=== PATIENT | female | born 1955 | race Caucasian/White ===

== ENCOUNTER 2018-03-28 13:11 | Outpatient (RCR) | payer OTHER, SELFPAY ==
--- NOTE | 2018-03-28 09:22 | PTTR_ITS ---
DATE: 03/28/18 SUBJECTIVE: Damion states that she is feeling much better than she had been previously. She continues to have pain when sitting, although otherwise feels as though her symptoms are well managed. OBJECTIVE: Manual therapy: ([id number]).Pt has slightly increased leg length on the L in supine position. Her L ASIS is elevated as compared to the R, although this is minimal compared to her previous visit. She received mobilization with movement in L side lying position with R hamstring activation and manual overpressure at the pelvis with good tolerance. Post-mobilization, she does have improved symmetry with bony landmarks at the pelvis. Therapeutic procedures ([id number]).We reviewed pts HEP. With transverse abdominal activation, she is getting a great deal of hip flexor firing. She was instructed in appropriate palpation for landmarks and with significant cuing and tactile feedback she was able to demonstrate improved transverse abdominal activation with diminished hip flexor recruitment. I also progressed her bridges to include bridge with october and she was provided with a blue theraband for progression of her hook lying ER. Direct treatment time: 30 min Total treatment time: 30 min SS/imani
== END 2018-04-04 23:59 | disposition home or self-care (01) ==
LOC: PT 13:11
PROVIDERS: Referring Provider Orthopaedic Surgery; Visit Provider Orthopaedic Surgery
DX: S72.012D Unspecified intracapsular fracture of left femur, subsequent encounter for closed fracture with routine healing (principal)
CPT/HCPCS: 97110; 97140

== ENCOUNTER 2021-07-25 11:23 | Outpatient (CLI) | payer OTHER, SELFPAY ==
--- NOTE | 2021-07-25 11:15 | RT.EKG_ITS ---
APPROVED REPORT Exam: Resting ECG Reason for Exam: cad Patient Location: O HR:76 bpm ECG Measurements Heart Rate [address] 133 P 51 QRSd 83 QRS 17 QT 382 T 7 QTc 430 Conclusion Sinus rhythm...normal P axis, V-rate 50- 99 Baseline wander in lead(s) V3 Normal Electrocardiogram
== END 2021-07-25 11:24 | disposition home or self-care (01) ==
LOC: DI.CARD 11:24
PROVIDERS: PCP Family Medicine; Visit Provider Internal Medicine Cardiovascular Disease
DX: I25.10 Atherosclerotic heart disease of native coronary artery without angina pectoris (principal)
CPT/HCPCS: 93010

== ENCOUNTER 2022-05-01 03:02 | Outpatient (CLI) | payer OTHER, SELFPAY ==
[2022-05-01 12:57] LABS: ALT 32 U/L (14-59); AST 30 U/L (15-37); Albumin 3.8 g/dL (3.4-5.0); Alkaline Phosphatase 64 U/L (46-116); BUN 18 mg/dL (7-18); Bilirubin, Total 0.8 mg/dL (0.2-1.0); CREATININE 0.8 mg/dL (0.55-1.02); Calcium 9.1 mg/dL (8.5-10.1); Calculated LDL 93 mg/dL (<100); Chloride 104 mmol/L (98-107); Cholesterol 190 mg/dL (<200); Estimated GFR 81.72 (mL/min/1.73m2); Glucose 87 mg/dL (74-106); HDL Cholesterol 88 mg/dL (40-60); Potassium 4.1 mmol/L (3.5-5.1); Sodium 140 mmol/L (136-145); Total Protein 7.1 g/dL (6.4-8.2); Triglyceride 45 mg/dL (<150)
== END 2022-05-01 03:03 | disposition home or self-care (01) ==
LOC: LOS 03:02
PROVIDERS: PCP Family Medicine; Visit Provider Family Medicine
DX: I10 Essential (primary) hypertension (principal); E03.9 Hypothyroidism, unspecified; I25.10 Atherosclerotic heart disease of native coronary artery without angina pectoris
CPT/HCPCS: 36415; 80053; 80061; 84443

== ENCOUNTER 2022-05-17 14:59 | Outpatient (REF) | payer OTHER, SELFPAY ==
--- NOTE | 2022-05-17 13:30 | PAPFT_PTH ---
PATIENT: Damion Grant LOC: [facility] U#:[id number] AGE/SX: 66/F ROOM: RE05/17/[address]: Leticia Hatch MD, DC : 1955 BED: DIS: 05/17/2022 SPEC #: [id number] RECD: 05/18/22 12:43 STATUS: JAEL REQ #: [id number] SARAH: 05/17/22 13:[address]: Leticia Hatch DEPT: [facility] Cytology RECD BY: Vanna Mccracken Tissues: 1 - CX/ENDOCX FOR PAP SMEARS Procedures: PAP THIN PREP/UVM Screening HPV DNA PROBE Comments: [id number]
== END 2022-05-17 15:00 | disposition home or self-care (01) ==
LOC: LBN 14:59
PROVIDERS: PCP Family Medicine; Visit Provider Family Medicine
DX: Z12.4 Encounter for screening for malignant neoplasm of cervix (principal); Z11.51 Encounter for screening for human papillomavirus (HPV)
CPT/HCPCS: 88142; 87624

== ENCOUNTER 2022-08-27 14:46 | Outpatient (REF) | payer OTHER, SELFPAY ==
[2022-08-27 15:00] LABS: Abs Immature Grans 0.01 10^3/uL (0.0-0.06); Absolute Basophil Count 0.03 10^3/uL (0.0-0.2); Absolute Eosinophil Count 0.04 10^3/uL (0.0-0.7); Absolute Lymphocyte Count 1.12 10^3/uL (1.2-3.4); Absolute Monocyte Count 0.52 10^3/uL (0.1-0.8); Absolute Neutrophil Count 4.22 10^3/uL (1.2-6.7); Basophils % 0.5; Eosinophils % 0.7; HCT 44.3 % (36.0-46.0); HGB 14.9 g/dL (11.2-15.7); Immature Grans % 0.2; Lymphocytes % 18.9; MCH 29.5 pg (27.0-33.0); MCHC 33.6 % (32.0-36.0); MCV 88 fL (80-95); MPV 9.4 fL (8.0-11.0); Monocytes % 8.8; Neutrophils % 70.9; Platelet Count 303 10^3/uL (130-400); RBC 5.05 10^6/uL (3.93-5.22); RDW 12.7 % (11.7-14.6); RDW-SD 40.8 fL; WBC 5.94 10^3/uL (4.4-10.8)
[2022-08-27 15:46] LABS: Ferritin 111 ng/mL (8-252); Folate 19.8 ng/mL (8.6-20.0)
[2022-08-27 15:50] LABS: Vitamin B12 > 2000 pg/mL (193-986)
== END 2022-08-27 14:47 | disposition home or self-care (01) ==
LOC: LBN 14:46
PROVIDERS: PCP Family Medicine; Visit Provider Surgery
DX: E03.9 Hypothyroidism, unspecified (principal); E53.8 Deficiency of other specified B group vitamins; E78.5 Hyperlipidemia, unspecified; I10 Essential (primary) hypertension; I25.10 Atherosclerotic heart disease of native coronary artery without angina pectoris; I73.00 Raynaud's syndrome without gangrene; K58.9 Irritable bowel syndrome, unspecified; K62.5 Hemorrhage of anus and rectum; R53.83 Other fatigue; R73.09 Other abnormal glucose; S72.002A Fracture of unspecified part of neck of left femur, initial encounter for closed fracture; Z12.11 Encounter for screening for malignant neoplasm of colon; Z86.2 Personal history of diseases of the blood and blood-forming organs and certain disorders involving the immune mechanism
CPT/HCPCS: 82607; 82728; 82746; 85025

== ENCOUNTER 2022-11-30 12:04 | Day surgery (SDC) | payer OTHER, SELFPAY ==
--- NOTE | 2022-11-29 22:06 | PDOC.DSDIS_ITS ---
Date of service: 11/30/22 Time of Service: 13:40 Discharge Plan Disposition Patient Disposition: Home Condition: Good Discharge Details Reason For Visit: colon scope and hemorrhoid banding Attending Provider: Yasmeen Roy Primary Care Provider: Leticia Hatch Home Meds and New Rx's Prescriptions: Continued atorvastatin 10 mg tablet 10 mg PO DAILY Qty: 90 4RF estradiol 0.5 mg tablet 0.5 mg PO .Q48 H Qty: 45 4RF levothyroxine 25 mcg tablet 25 mcg PO DAILY Qty: 114 5RF Rx Instructions: 1 tablet by mouth Saturday through Saturday, then 2 tablets on Saturday & Saturday medroxyprogesterone 2.5 mg tablet 2.5 mg PO DAILY Qty: 90 4RF cholecalciferol (vitamin D3) 25 mcg (1,000 unit) capsule 25 mcg PO DAILY vitamin B complex [B Complex-Vitamin B12] Tablet 1 tab PO DAILY ascorbate calcium (vitamin C) 500 mg tablet 500 mg PO .every other day biotin 5 mg capsule 5 mg PO .every other day prochlorperazine maleate [Compazine] 5 mg tablet 5 mg PO QID PRN (Reason: nausea and vomiting) Qty: 7 0RF Held aspirin 81 mg tablet,delayed release (DR/EC) 81 mg PO DAILY Qty: 90 4RF Hold Instructions: Resume on 12/12/22. Discontinued polyethylene glycol 3350 17 gram/dose powder 238 g PO ONCE Qty: 238 0RF Rx Instructions: take per colonoscopy instructions bisacodyl [Dulcolax (bisacodyl)] 5 mg tablet,delayed release (DR/EC) 5 mg PO ONCE Qty: 4 0RF Rx Instructions: take per colonoscopy instructions Discharge Instructions Additional Instructions: [facility] Colonoscopy Post- Op Instructions Instructions for Everyone who is given Anesthesia: For your safety, please do the following for the next twenty-four (24) hours: *Do Not operate a motor vehicle (car, truck, motorcycle, etc.) *Do Not drink alcoholic beverages or use any recreational drugs for the first 24 hours or while taking pain medications. The medications in your body may have a reaction that can be dangerous. *Do Not make any important decisions or sign any important papers. Findings: Normal colon small hemorrhoid that we banded Follow up: 2 wks 12/10 11:30am w/ Dr. [facility] 1. No lifting over 20 pounds or strenuous activity for the first 24 hours after your procedure. After 24 hours there are no restrictions on your activity but you may feel fatigued for a few days. 2. After you arrive home you may have a light meal and return to your normal diet as you can tolerate it without feeling sick to your stomach. 3. You may have a bloated, gaseous feeling in your belly (abdomen) after a colonoscopy. Passing gas and belching will help. Walking or lying down on your left side with your knees flexed may relieve the discomfort. Call the office at [phone] (Office) or [phone] (Hospital) right away if you notice any of the following: a.Vomiting of blood or ?coffee ground stools?. b.Rectal bleeding 1Tbsp, blood clots or continuous bleeding. c.Severe belly (abdominal) pain. d.A hard distended belly (abdomen) and an inability to pass gas. 4. Please don?t expect to have a normal BM (bowel movement) for 2-3 days after your procedure. 5. If there are questions regarding the findings of your procedure, please contact your doctor 6. If you are unable to contact your doctor with a problem, contact the hospital at [phone]. 7. Continue all your regular medications unless directed otherwise. Rubber Band Ligation for Hemorrhoids: What to Expect at Home Your Recovery In this procedure, a hemorrhoid was tied off at its base with rubber bands. You may feel pain and have a feeling of fullness in your lower belly. Or you may feel as if you need to have a bowel movement. This usually goes away within several days after the surgery. You may need pain medicine during this time. You may have a small amount of bleeding from your anus about 7 to 10 days after surgery, when your hemorrhoid falls off. This is normal. Some people are able to return to regular activities in 24 hours. Others may need 2 to 3 days of rest. You will need to avoid heavy lifting and straining with bowel movements for the next 5-7 days. This care sheet gives you a general idea about how long it will take for you to recover. But each person recovers at a different pace. Follow the steps below to get better as quickly as possible. How can you care for yourself at home? Activity ? Rest when you feel tired. Getting enough sleep will help you recover. ? Try to walk each day. Start by walking a little more than you did the day before. Bit by bit, increase the amount you walk. Walking boosts blood flow and helps prevent pneumonia and constipation. ? Avoid strenuous activities, such as bicycle riding, jogging, weight lifting, or aerobic exercise, until your doctor says it is okay. ? For 2 to 3 weeks, avoid lifting anything that would make you strain. This may include heavy grocery bags and milk containers, a heavy briefcase or backpack, cat litter or dog food bags, a vacuum upholstery cleaner, or a child. ? You may take showers and baths as usual. Pat your anal area dry when you are done. ? Ask your doctor when you can drive again. ? You may need to take a few days to a few weeks off work. It depends on the procedure you had, the type of work you do, and how you feel. Diet ? You can eat your normal diet. If your stomach is upset, try eating bland, low-fat foods like plain rice, broiled chicken, toast, and yogurt. ? Drink plenty of fluids (unless your doctor has told you not to). ? It is important to eat high-fibre foods after your procedure. This will make it easier to have bowel movements and keep your hemorrhoids from coming back. ? You may notice that your bowel movements are not regular right after your procedure. This is common. Try to avoid constipation and straining with bowel movements. You may want to take a fibre supplement every day. If you have not had a bowel movement after a couple of days, ask your doctor about taking a mild laxative. Pain Control ? Your doctor will tell you if and when you can restart your medicines. He or she will also give you instructions about taking any new medicines. ? If you take aspirin or some other blood thinner, ask your doctor if and when to start taking it again. ? Take pain medicines ?as directed: Take tylenol 500 mg by mouth with food every 4 hours as needed for pain. Or ibuprofen 600 mg by mouth with food every 6 hours as needed for pain.? Do not take tylenol if you have a history of heavy drinking, hepatits C or liver problems.? Do not take ibuprofen if you have a history of stomach ulcers /problems, bleeding problem or kidney issues. If you think your pain medicine is making you sick to your stomach: o?? Take your medicine after meals (unless your doctor has told you not to). ? Sit in 5 to 10 inches palin of warm water (sitz bath) for 15 to 20 minutes 3 times a day and after bowel movements. Then pat the area dry. Do this as long as you have pain in your anal area. ? Put ice or a cold pack on the area for 10 to 20 minutes at a time. Try to do this every 1 to 2 hours for the next 3 days (when you are awake). Put a thin cloth between the ice and your skin. ? Support your feet with a small step stool when you sit on the toilet. This helps flex your hips and places your pelvis in a squatting position. This can make bowel movements easier after your procedure. I understand the above instructions and have no questions. Signature of Patient or Adult Escort Name of Responsible Adult Escort Signature of Nurse Date/Time Activity:: see above Diet:: see above Discharge Orders Discharge Orders: Discharge Order (Routine); Ordered 11/30/22 Ordered By: Yasmeen Roy DS: Diagnosis Discharge Diagnosis (1) IBS (irritable bowel syndrome): Status: Chronic (2) Internal hemorrhoid, bleeding: Status: Acute Asessment and Plan: Post [place] Note/Eval The patient is seen and examined after their colonoscopy.? The patient has been able to pass gas.? They are not having abdominal pain.? They have been able to tolerate liquids and a snack.? They do not have any nausea or vomiting.? They are not having any chest pain or shortness of breath.??? They are not having any rectal bleeding..? Their vital signs have been stable-see nursing notes. We discussed findings during their colonoscopy, and any biopsies that were done/polyps that were removed. The patient will be sent a letter with any biopsy results, and when to repeat the colonoscopy.-see discharge instructions. Patient was given explicit instructions to follow-up regarding colonoscopy-refer to discharge instructions.? We reviewed resumption of medications. Patient verbalized understanding and discharged in stable and satisfactory condition- See nursing notes.
[2022-11-30 12:17] VITALS: BP 155/95; PULSE 68; RESP 16; TEMP 36.6; O2SAT 100
[2022-11-30] MEDS: Lactated Ringers 1,000 ML 80 ML IV (12:43)
--- NOTE | 2022-11-30 12:47 | W.PM.HP.N ---
Date of service: 11/30/22 Time of Service: 12:51 Assessment and Plan Assessment and plan (1) Rectal hemorrhage: Status: Acute Assessment and plan: Colonoscopy and hemorrhoid banding. I reviewed with the patient what she could expect during the procedure, recovery time, Colace care, and risks Informed consent is obtained for the procedural (explained in simple layman's terms that the pt. and/or family could understand) explaining risks vs benefits and alternatives to the procedure and consequences if we do not do the procedure and need/rational for the procedure. Risks include but are not limited to: bleeding, infection, perforation of esophagus, stomach, colon, small intestines, bronchus or trachea, or PTX. This would necessitate emergency surgery to repair the damage w/ possible ostomy; and other associated complications w/ the required surgery. Also complications of anesthesia including aspiration, AZ/CVA/. Risks hemorrhoid banding include but not limited to: Bleeding, infections, recurrence, anesthesia, and pain (2) Former smoker: Status: Acute (3) Atherosclerosis of aorta: Status: Acute (4) Encounter for screening colonoscopy: Status: Acute (5) Hypertension: Status: Chronic (6) Hyperlipidemia: Status: Acute (7) CAD (coronary artery disease): Status: Chronic (8) S/P arterial stent: Status: Acute (9) Hypothyroid: Status: Chronic (10) Raynaud disease: Status: Acute History of Present Illness Narrative: 11/30/22 Patient is here today for colonoscopy for rectal bleeding.??? They completed a bowel prep with just a clear yellow residual effluent.? They not having any chest pain or shortness of breath, currently.? They are not experiencing any fever or chills.? They deny any productive cough or upper respiratory tract infection signs or symptoms.? They are not having abdominal pain, or nausea and vomiting.? They have not had any changes in medications, past medical history or past surgical history since previously being seen in the office. They have not had any accidents or have been in the ER since the clinic pre-operative evaluation. ??I reviewed the procedure with the patient today, including risks and benefits of the procedure, and what they could expect at home for recovery.? All questions are answered to the patient?s satisfaction today, and they are stable to proceed with the proposed procedure. we also discussed the possibility of having internal hemorrhoids.? We discussed what hemorrhoids are and how they form.? We discussed doing hemorrhoid banding.? We we discussed what that would entail surgically, risks involved, and what they could expect afterwards and as far as healing and care.? Risks include but not limited to: Bleeding, infection, pain, recurrence. Patient should hold her aspirin prior to the procedure.? 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 I encouraged her to do so.? At this point she is 1 year out from stent placement.? Her chance of occlusion being off the aspirin for 10 days time in total is minimal, but there is a slight risk of thrombosis.? And I encouraged her to discuss this with Dr. Prakash. Informed consent is obtained for the procedural (explained in simple layman's terms that?the pt and/or family could understand) explaining risks vs benefits and alternatives to the procedure and consequences if we do not do the procedure and need/rational for the procedure. Risks include but are not limited to: bleeding, infection, perforation of colon.? This would necessitate emergency surgery to repair the damage w/ possible ostomy; and other associated complications w/ the required surgery. ? Also complications of anesthesia including aspiration, AZ/CVA/. We will also plan on doing a hemorrhoid banding. She may have some mild discomfort for 24 to 48 hours after the procedure. Risks include bleeding, infections, abscesses or fistulas, and recurrence of the hemorrhoids. I discussed with the?patient would they could expect during the procedure, post procedure and recovery time and risks.? The patient understands that they need to have a ride home after the procedure.? The patient was given all this information in writing and expressed understanding. If there are any questions or concerns please feel free to contact our office.? Generally Colonoscopy does not require antibiotics prophylaxis (2) Encounter for screening colonoscopy: (3) Hypertension: (4) Hyperlipidemia: (5) IBS (irritable bowel syndrome): (6) CAD (coronary artery disease): (7) Hypothyroid: (8) Raynaud disease: (9) Vitamin B12 deficiency: (10) Fatigue: (11) Atherosclerosis of aorta: (12) Former smoker: ?Orders Blood Draw (Office) 08/27/22 K62.5 - Hemorrhage of anus and rectum, R53.83 - Other fatigue ? Ferritin 08/27/22 E03.9 - Hypothyroidism, unspecified, E53.8 - Deficiency of other specified B group vitamins, E78.5 - Hyperlipidemia, unspecified, I10 - Essential (primary) hypertension, I25.10 - Atherosclerotic heart disease of [place] coronary artery without angina pectoris, I73.00 - Raynaud's syndrome without gangrene, K58.9 - Irritable bowel syndrome without diarrhea, K62.5 - Hemorrhage of anus and rectum, R53.83 - Other fatigue, R73.09 - Other abnormal glucose, S72.002A - Fracture of unspecified part of neck of left femur, initial encounter for closed fracture, Z12.11 - Encounter for screening for malignant neoplasm of colon, Z86.2 - Personal history of diseases of the blood and blood-forming organs and certain disorders involving the immune mechanism ? Complete Blood Count w/Diff 08/27/22 E03.9 - Hypothyroidism, unspecified, E53.8 - Deficiency of other specified B group vitamins, E78.5 - Hyperlipidemia, unspecified, I10 - Essential (primary) hypertension, I25.10 - Atherosclerotic heart disease of [place] coronary artery without angina pectoris, I73.00 - Raynaud's syndrome without gangrene, K58.9 - Irritable bowel syndrome without diarrhea, K62.5 - Hemorrhage of anus and rectum, R53.83 - Other fatigue, R73.09 - Other abnormal glucose, S72.002A - Fracture of unspecified part of neck of left femur, initial encounter for closed fracture, Z12.11 - Encounter for screening for malignant neoplasm of colon, Z86.2 - Personal history of diseases of the blood and blood-forming organs and certain disorders involving the immune mechanism ? Vitamin B12 08/27/22 E03.9 - Hypothyroidism, unspecified, E53.8 - Deficiency of other specified B group vitamins, E78.5 - Hyperlipidemia, unspecified, I10 - Essential (primary) hypertension, I25.10 - Atherosclerotic heart disease of [place] coronary artery without angina pectoris, I73.00 - Raynaud's syndrome without gangrene, K58.9 - Irritable bowel syndrome without diarrhea, K62.5 - Hemorrhage of anus and rectum, R53.83 - Other fatigue, R73.09 - Other abnormal glucose, S72.002A - Fracture of unspecified part of neck of left femur, initial encounter for closed fracture, Z12.11 - Encounter for screening for malignant neoplasm of colon, Z86.2 - Personal history of diseases of the blood and blood-forming organs and certain disorders involving the immune mechanism ? Folate 08/27/22 E03.9 - Hypothyroidism, unspecified, E53.8 - Deficiency of other specified B group vitamins, E78.5 - Hyperlipidemia, unspecified, I10 - Essential (primary) hypertension, I25.10 - Atherosclerotic heart disease of [place] coronary artery without angina pectoris, I73.00 - Raynaud's syndrome without gangrene, K58.9 - Irritable bowel syndrome without diarrhea, K62.5 - Hemorrhage of anus and rectum, R53.83 - Other fatigue, R73.09 - Other abnormal glucose, S72.002A - Fracture of unspecified part of neck of left femur, initial encounter for closed fracture, Z12.11 - Encounter for screening for malignant neoplasm of colon, Z86.2 - Personal history of diseases of the blood and blood-forming organs and certain disorders involving the immune mechanism ?New prochlorperazine maleate (Compazine) 5 mg? PO QID PRN 7 tabs 0RF nausea and vomiting ? ? polyethylene glycol 3350 ?? take per colonoscopy instructions 238 grams? PO ONCE 238 grams 0RF colonoscopy prep ? ? bisacodyl (Dulcolax (bisacodyl)) ?? take per colonoscopy instructions 5 mg? PO ONCE 4 tabs 0RF colonscopy bowel prep ? ? RN:?Pt reports she has [facility], on and off, for the last 6 months, not constipated. It feels like something gets scrapped.? Pt reports paternal Uncle had colon cancer.? ?Pt has? had colon cancer screening before.? They denies problems with constipation or diarrhea.? They deny any pain or difficulty with bowel movements.? There is secondary family member that had? colon cancer.? Pt has not had any unexplained weight loss.? Their appetite is good.? ?They deny heart, lung, or kidney problems. They are not having heartburn or indigestion. They have not had any prior colo-rectal surgery.? The patient? has not had a prior ZOILA.? They deny any problems with anesthesia in the past.? She states the bleeding is intermittent.? The bleeding has not changed since she stopped the blood thinners.? No weight loss.? No changes in bowels, other than as mentioned.? She denies having any history of hemorrhoids.? She has never had fissures before.? The bleeding was painless.? It is very random. Patient had a cath and stents placed in June 2021.? She is off of Plavix.? She runs 2 miles a day without chest pain.? See Dr. Prakash's notes.? Last CE was in 2011.? Nl per pt.? Anesthesia: general (without airway) Previous surgical intolerances: No Previous surgical complications: No Pulmonary risk factors: Date of surgery: Planned procedure: Yes Sleep apnea risks: No COPD/Asthma/Smoker:? quit tob 18 yrs ago.? Lung CT scan nl. Can climb one flight of stairs (12-13 steps) in less than 30 seconds without stopping and without symptoms: Yes The surgery proposed for this patient is: low risk Active cardiac conditions: pt had stents.? Did not have an AZ.? See Dr. Prakash's notes in [facility] Active risk factors: none ASA (acetylsalicylic acid): ASA 81mg Beta blockers: not used Kidneys: no concerns DM:no Review of Systems All systems reviewed & are unremarkable except as noted in HPI and below PFSH All Active Problems Former smoker (Acute) Atherosclerosis of aorta (Acute) Fatigue (Acute) Rectal hemorrhage (Acute) Encounter for screening colonoscopy (Acute) Hypertension (Chronic) Hyperlipidemia (Acute) CAD (coronary artery disease) (Chronic) S/P arterial stent (Acute) IBS (irritable bowel syndrome) (Chronic) Hypothyroid (Chronic) [place] Raynaud disease (Acute) Vitamin B12 deficiency (Acute) Medical History Angina of effort Closed left femoral fracture (~2017) Disorder of breast Ductectomy, NOT cancer Elevated random blood glucose level Fracture of left hip History of anemia Hypokalemia Psoriasis Surgical History History of colonoscopy (~10/09/11) Social History (Reviewed 11/30/22 @ 12:54 by BHARATH Leggett Smoking/Tobacco Use Status: Former Tobacco Use tobacco type: cigarettes Quit Date: 08/05/13 Tobacco: How many years used: 28 Smoking risk assessment performed?: Yes Alcohol Intake: current Alcohol Intake frequency: a few times a week Alcohol type: wine Drug use: Never Substance use type: does not use Caregiver/Support person: No Household members: spouse Housing: house Communication Needs: None Do you need help understanding health information?: Never Pets and animals: No Sexually active: Yes Do you think of yourself as: straight/heterosexual Current gender identity: female What is your relationship status?: How often do you talk on the phone with friends or family?: once per week How often do you get together with friends or relatives?: once per week How often do you attend restoration or baptism services?: decline to answer Do you belong to any clubs or organized social groups?: yes Panel score (0-1 are the most socially isolated patients): 2 NHANES result reviewed/action taken: Yes What type of physical activity do you participate in: bicycling, other Details: Skiing and running Duration: 60-90 minutes/day Frequency: 3-4 times per week Janel/Hoahaoism: None Seatbelt use: always Helmet use: Yes Helmet use: always Do you feel safe at home: Yes Do you feel safe in your relationship?: Yes Meds Allergies and Home Medications Allergies Allergy/AdvReac Type Severity Reaction Status Date / Time Iodinated Contrast Media Allergy Severe Verified 11/30/22 12:26 gluten Allergy Verified 11/30/22 12:26 Home Medications Medication Instructions Recorded Confirmed Type aspirin 81 mg tablet,delayed 81 mg PO DAILY #90 tabs 05/17/22 11/27/22 Rx release atorvastatin 10 mg tablet 10 mg PO DAILY #90 tabs 05/17/22 11/30/22 Rx estradiol 0.5 mg tablet 0.5 mg PO .Q48 H #45 tabs 05/17/22 11/30/22 Rx levothyroxine 25 mcg tablet 25 mcg PO DAILY #114 tabs 05/17/22 11/30/22 Rx medroxyprogesterone 2.5 mg tablet 2.5 mg PO DAILY #90 tabs 05/17/22 11/30/22 Rx ascorbate calcium (vitamin C) 500 500 mg PO .every other day 08/27/22 11/27/22 History mg tablet biotin 5 mg capsule 5 mg PO .every other day 08/27/22 11/30/22 History cholecalciferol (vitamin D3) 25 25 mcg PO DAILY 08/27/22 11/30/22 History mcg (1,000 unit) capsule prochlorperazine maleate 5 mg 5 mg PO QID PRN nausea and 08/27/22 11/30/22 Rx tablet (Compazine) vomiting #7 tabs vitamin B complex (B 1 tab PO DAILY 08/27/22 11/30/22 History Complex-Vitamin B12 tablet) Exam Narrative Exam Narrative: PHYSICAL EXAM GENERAL APPEARANCE: Alert, healthy appearance, oriented, x 3,? in no acute distress HEAD, EYES, EARS, NECK, THROAT: Head is normocephalic, pupils equal, round, reactive to light and accommodation, ocular movement intact, sclera clear and no jaundice. ?Dentition intact. LUNGS: normal respiration/normal chest excursion. ?Clear to auscultation bilaterally. ?No wheeze. ?HEART: Regular rate and rhythm. no murmurs EXTREMITY: No edema or cyanosis.? no leg pain, redness, swelling.? ABDOMEN: soft and non-tender to palpation.? Normal bowel sounds.? ? Results Labs Labs: .labs Last Vital Signs Temp 36.6 C 11/30/22 12:17 Pulse 68 11/30/22 12:17 Resp 16 11/30/22 12:17 BP 155/95 H 11/30/22 12:17 Pulse Ox 100 11/30/22 12:17 Time Spent Time spent with Patient: <40 minutes Time was spent: preparing to see the patient(eg.review tests), obtaining and/or reviewing separately otained hiistory, ordering medications,tests, procedures, referring, communicating with other health health care facilities inspector, indepentently interpreting results, counseling the patient and care coordination
--- NOTE | 2022-11-30 12:48 | W.ANESPRE ---
General Info Date of Service Date Performed: 11/30/22 Height: 5 ft 4 in Weight: 62.199 kg Body Mass Index (BMI): 23.5 Surgical Procedure: Operation Date: 11/30/22 12:55 Proposed Procedure Side Surgeon p Colonoscopy Yasmeen Roy DO s Possible Hemorrhoid Banding Yasmeen Roy DO Meds Allergies and Home Medications Allergies Allergy/AdvReac Type Severity Reaction Status Date / Time Iodinated Contrast Media Allergy Severe Anaphylaxis Verified 11/30/22 13:03 gluten AdvReac GI Verified 11/30/22 13:03 intolerance Home Medication Medication Instructions Recorded aspirin 81 mg tablet,delayed 81 mg PO DAILY #90 tabs 05/17/22 release atorvastatin 10 mg tablet 10 mg PO DAILY #90 tabs 05/17/22 estradiol 0.5 mg tablet 0.5 mg PO .Q48 H #45 tabs 05/17/22 levothyroxine 25 mcg tablet 25 mcg PO DAILY #114 tabs 05/17/22 medroxyprogesterone 2.5 mg tablet 2.5 mg PO DAILY #90 tabs 05/17/22 ascorbate calcium (vitamin C) 500 500 mg PO .every other day 08/27/22 mg tablet biotin 5 mg capsule 5 mg PO .every other day 08/27/22 cholecalciferol (vitamin D3) 25 25 mcg PO DAILY 08/27/22 mcg (1,000 unit) capsule prochlorperazine maleate 5 mg 5 mg PO QID PRN nausea and 08/27/22 tablet (Compazine) vomiting #7 tabs vitamin B complex (B 1 tab PO DAILY 08/27/22 Complex-Vitamin B12 tablet) Current Visit Medications: Current Medications Generic Name Dose Route Start Last Admin Trade Name Freq PRN Reason Stop Dose Admin Hyoscyamine Sulfate 0.125 mg 11/30/22 11:52 Hyoscyamine 0.125 Mg Sl/Oral/Chew SL DIRECTED PRN Ringer's Solution 1,000 mls @ 80 mls/hr 11/30/22 06:00 11/30/22 12:43 IV 12/29/22 23:59 80 mls/hr INFUSION JORDAN Administration IV Miscellaneous Supplies 1 each 11/30/22 06:00 Iv Access IV 12/29/22 23:59 DIRECTED JORDAN Ondansetron HCl 4 mg 11/30/22 11:52 Ondansetron 4 Mg/2 Ml Vial IVP Q4H PRN PRN Nausea / Vomiting Sodium Chloride 0 ml 11/30/22 06:00 Normal Saline Flush 10 Ml Syr IV 12/29/22 23:59 PRN PRN Sodium Chloride 0 ml 11/30/22 06:00 Normal Saline 10 Ml Vial IJ 12/29/22 23:59 DIRECTED PRN Sterile Water 0 ml 11/30/22 06:00 Water,Injection,Sterile 10 Ml Vial IJ 12/29/22 23:59 DIRECTED PRN PFSH Active Problems Active Problems: Problem Status Onset Code Former smoker Z87.891 Atherosclerosis of aorta I70.0 Fatigue R53.83 Rectal hemorrhage K62.5 Encounter for screening colonoscopy Z12.11 Hypertension I10 Hyperlipidemia E78.5 CAD (coronary artery disease) I25.10 S/P arterial stent Z95.9 IBS (irritable bowel syndrome) K58.9 Hypothyroid E03.9 Raynaud disease I73.00 Vitamin B12 deficiency E53.8 Medical History Medical History Angina of effort Closed left femoral fracture (~2018) Disorder of breast Ductectomy, NOT cancer Elevated random blood glucose level Fracture of left hip History of anemia Hypokalemia Psoriasis Surgical History Surgical History History of colonoscopy (~10/09/11) Tobacco Smoking/Tobacco Use Status: Former Tobacco Use Passive smoking exposure: No Alcohol Alcohol Intake: current Alcohol intake frequency: a few times a week Alcohol type: wine Substance Use Substance use: Never Substance use type: does not use Vital Signs and Lab Results Vital Signs Most Recent Vital Signs in EMR: Most Recent Vital Signs Temp Pulse Resp BP Pulse Ox 36.6 C 68 16 155/95 H 100 11/30/22 12:17 11/30/22 12:17 11/30/22 12:17 11/30/22 12:17 11/30/22 12:17 Lab Results Blood Type / Crossmatch: No Data to Display Complete Blood Count: No Data to Display Complete Metabolic Panel: No Data to Display Liver Function Panel: No Data to Display Coagulation Panel: No Data to Display Cardiac Panel: No Data to Display Arterial Blood Gas: No Data to Display Venous Blood Gas: No Data to Display Pancreas Panel: No Data to Display Thyroid Panel: No Data to Display Infectious Disease: No Data to Display Blood Cultures: No Data to Display Toxicology Panel: No Data to Display Imaging and Studies Imaging and Studies Study information below may be from another EMR and interpreted by another provider. Please see original notes in EMR for more complete details. EKG Summary: DATE/TIME OF SERVICE: 07/25/21 1130 : 1955PERFORMING LOCATION: .CARD APPROVED REPORT Exam: Resting ECG Reason for Exam: cad Patient Location: O HR:76 bpm ECG Measurements Heart Rate 76 AXIS MA 133 P 51 QRSd 83 QRS 17 QT 382 T7 QTc 430 Conclusion Sinus rhythm...normal P axis, V-rate 50- 99 Baseline wander in lead(s) V3 Normal Electrocardiogram Anesthesia Assessment and Plan Anesthesia History Personal History: No History of Anesthesia Complications Family History: No Family History of Anesthesia Complications Exercise Tolerance Exercise Tolerance: Metabolic Equivalents>4 Pertinent Negatives Pertinent Negatives: No Symptoms of GERD and No Major Pulmonary Symptoms or Complaints Cardiac & Pulmonary Exam Cardiac Exam: Normal S1/S2 Heart Sounds Pulmonary Exam: Clear Bilateral Breath Sounds Implantable Cardiac Device Does patient have a Pacemaker or an ICD?: No Airway Exam Known Difficult Airway: No Mallampati Class: 1 Mouth Opening: Normal (> 3cm) Thyromental Distance: Greater than 3 cm Neck Range of Motion: Full ROM Neck Circumference: Normal Teeth Condition: Normal Dentition ASA Classification ASA Score: ASA 3 Emergency Case?: No NPO Status NPO Status: NPO Clears >2 hours, Solids >8 hours Anesthesia Plan Resuscitation Status: Full Code Anesthesia Technique: General Anesthesia Airway Planned: Natural Airway Monitors Used: Standard Monitors
[2022-11-30 12:50] VITALS: BMI 23.5
--- NOTE | 2022-11-30 13:35 | W.COLOREPORT ---
Date of service: 11/30/22 Time of Service: 13:00 Colonoscopy Report Date of procedure: 11/30/22 Pre-op diagnosis general: rectal bleeding Post-op diagnosis procedure note: other (x1 internal hemorrhoid -left lateral position) Surgeon: Yasmeen Roy Anesthesia Type: General:No Airway Estimated blood loss (mL): 1 Pathology: none sent Complications: None Disposition: same day Prep: Miralax/Dulcolax Retraction Time: 13 Procedure Description: After informed consent was obtained the patient was taken to the procedure room and placed in a left decubitous position. Monitors were applied and a time out was done. The patients name, date of , procedure, allergies to medications and metal in their body was reviewed. The patient was then sedated. Once sedated and comfortable a rectal exam was done. External exam was normal. Internal exam revealed a normal sphincter tone and no palpable masses. The scope was then introduced and retrofelexed. Grade I internal hemorrhoids x1 -in the left lateral position were identified. The scope was then advanced to the cecum w/out difficulty. The TI and appendiceal orifice were identified. The prep was BBPS 3 in all segments for a total of 9. The scope was then slowly retracted over 13 minutes back into the rectum. There are no polyps, AVMs, or diverticular apparent today. The mucosa is pink and healthy with a normal vascular pattern. We did then do a hemorrhoid banding on the left lateral complex. No bleeding is noted. The scope was removed and the patient was woken up and taken back to Same day surgery in stable condition. The patient tolerated the procedure well and there were no immediate complications. Follow up: The patient should follow up in 10 years unless they develop changes in bowel habits or other new gastrointestinal complaints.
[2022-11-30 13:44] VITALS: BP 106/71; PULSE 72; RESP 16; TEMP 36.4; O2SAT 97
[2022-11-30] MEDS: Ketorolac 15 MG/ML VIAL IVP (13:53)
[2022-11-30] MEDS: Acetaminophen 500 MG TAB 1000 MG PO (13:54)
[2022-11-30 14:01] VITALS: BP 168/90; PULSE 60; RESP 16; TEMP 36.6; O2SAT 100
--- NOTE | 2022-11-30 14:05 | W.ANESPOSTOP ---
Postoperative Evaluation Date, Time and Location Date Performed: 11/30/22 Time Performed: 14:05 Patient Location: Day Surgery Unit Vital Signs Most Recent Imported Vital Signs: Most Recent Vital Signs Temp Pulse Resp BP Pulse Ox 36.4 C L 72 16 106/71 97 11/30/22 13:44 11/30/22 13:44 11/30/22 13:44 11/30/22 13:44 11/30/22 13:44 Pain Score Most Recent Pain Score: Most Recent Pain Score Pain Level 2 11/30/22 13:44 Assessment Mental Status: Awake (Alert & Oriented to Patient Baseline) Airway and Respiratory Function: Patent airway with normal (patient baseline) respiratory exam Cardiovascular Function: Hemodynamically Stable Hydration Status: Adequately Hydrated Nausea & Vomiting: No Nausea or Vomiting Pain: Pain is tolerable per patient Peripheral Nerve Block: Patient did not receive a nerve block
== END 2022-11-30 14:38 | disposition home or self-care (01) ==
PROVIDERS: PCP Family Medicine; Visit Provider Surgery
PROC: 0DJD8ZZ Inspection of Lower Intestinal Tract, Via Natural or Artificial Opening Endoscopic (ICD-10-PCS; CPT 45378; principal; 2022-11-30 12:45)
PROC: (CPT 46221; 2022-11-30 12:45)
DX: K62.5 Hemorrhage of anus and rectum (principal); K64.0 First degree hemorrhoids
CPT/HCPCS: 46221; 45378; J1885

== ENCOUNTER 2023-06-13 02:32 | Outpatient (CLI) | payer MEDICARE, SELFPAY ==
[2023-06-13 14:23] LABS: ALT 22 U/L (14-59); AST 18 U/L (15-37); Albumin 3.9 g/dL (3.4-5.0); Alkaline Phosphatase 62 U/L (46-116); Anion Gap 8.1 mmol/L (3-11); BUN 14 mg/dL (7-18); Bilirubin, Total 0.9 mg/dL (0.2-1.0); CO2 27.9 mmol/L (21.0-32.0); CREATININE 0.8 mg/dL (0.55-1.02); Calcium 9.6 mg/dL (8.5-10.1); Calculated LDL 88 mg/dL (<100); Chloride 103 mmol/L (98-107); Cholesterol 190 mg/dL (<200); Estimated GFR 81.21 (mL/min/1.73m2); Glucose 96 mg/dL (74-106); HDL Cholesterol 93 mg/dL (40-60); Sodium 139 mmol/L (136-145); TSH (W/Ref FT4) 2.21 uIU/mL (0.36-3.74); Total Protein 7.2 g/dL (6.4-8.2); Triglyceride 45 mg/dL (<150)
== END 2023-06-13 02:33 | disposition home or self-care (01) ==
LOC: LBO 02:33
PROVIDERS: PCP Family Medicine; Visit Provider Family Medicine
DX: I10 Essential (primary) hypertension (principal); E03.9 Hypothyroidism, unspecified
CPT/HCPCS: 36415; 80053; 80061; 84443

== ENCOUNTER → 2024-02-27 00:48 | Outpatient (CLI) | payer MEDICARE, SELFPAY ==
--- NOTE | 2024-02-27 06:45 | DI.US_ITS ---
Exam(s) US ABDOMEN EXAM: US ABDOMEN CLINICAL HISTORY: epigastric pain,R10.13 TECHNIQUE: Ultrasound abdomen performed using standard protocol. COMPARISON: No exams were available for comparison FINDINGS: ABDOMINAL AORTA AND IVC: Visualized portions normal caliber. PANCREAS: Normal where visualized. LIVER: Normal. Hepatopetal flow in the Portal Vein. The liver measures 12.6 cm long. GALLBLADDER:No evidence of cholelithiasis. No evidence of wall thickening. No pericholecystic fluid i dentified. There is a 0.5 cm nodule along the wall of the gallbladder which may represent a polyp. BILIARY SYSTEM: Common bile duct measures < 7 mm. No intrahepatic biliary ductal dilation. CRAIG'S SIGN: Negative. KIDNEYS: Kidneys are symmetric in size. No evidence of renal calculi. No evidence of hydronephrosis. No renal mass or cyst identified. SPLEEN: Not enlarged. ASCITES: None seen. IMPRESSION: 1. 0.5 cm nodule along the wall of the gallbladder likely reflecting a polyp. 2. Otherwise unremarkable abdominal ultrasound. DATA REPOSITORY:
== END ==
PROVIDERS: PCP Family Medicine; Visit Provider Family Medicine
DX: R10.13 Epigastric pain (principal); R07.9 Chest pain, unspecified; Z95.9 Presence of cardiac and vascular implant and graft, unspecified; I25.10 Atherosclerotic heart disease of native coronary artery without angina pectoris
CPT/HCPCS: 76700

== ENCOUNTER 2024-08-06 02:33 | Outpatient (CLI) | payer MEDICARE, SELFPAY ==
--- NOTE | 2024-08-06 07:15 | DI.DEXA_ITS ---
Exam(s) XR DEXA BONE DENSITY W/WO PRAFUL EXAM: XR DEXA BONE DENSITY W/WO PRAFUL CLINICAL HISTORY: menopausal status, screening for osteoporosis,z78.0 TECHNIQUE: HoloMiniVax Horizon C densitometer analysis of left hip, lumbar spine and left forearm. Lat eral survey image of the thoracic and lumbar spine. FINDINGS: Lateral view of the thoracic and lumbar spine shows no evidence of compression fractures. Bone mineral density measurements of the lumbar spine correspond to a total T-score of -1.2, in the osteopenic range. Bone mineral density measurements of the left hip correspond to a total T-score of -1.2, in the oste openic range. The femoral neck T-score is -2.0, in the osteopenic range.. Theleft forearm bone mineral density measurements correspond to a T-score of the distal 3rd of -0.5, in the normal range.. IMPRESSION: Osteopenia of the hip and spine. Normal bone density of forearm.
--- NOTE | 2024-08-06 07:15 | DI.RAD_ITS ---
Exam(s) XR ANKLE LT COMPLETE EXAM: XR ANKLE LT COMPLETE CLINICAL HISTORY: l ankle pain,m25.572. TECHNIQUE: 2D digital imaging was performed. COMPARISON: No exams were available for comparison FINDINGS: 3 views There is a mildly displaced oblique fracture in distal fibula. There is mild overlying soft tissue s welling. There are few calcific densities subjacent to the medial malleolus. 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 However, the more medial and smaller of the 2 bone densities at this level subjacent to the medial malleolus exhibits a corresponding defect in the parent bone and m ay be an avulsion injury. The posterior malleolus is intact. There is no widening of the ankle mortise. Talar dome unremarkab le. On the lateral view there is a bony excrescence pointing anteriorly off the anterior aspect of t he tibial plafond, this measuring 4 mm AP length by 3 mm. IMPRESSION: Distal fibular fracture with mild displacement. Medial malleolus findings as described above. DATA REPOSITORY: RADIATION DOSE DELIVERED:
--- NOTE | 2024-08-06 13:45 | DI.MAMMO_ITS ---
Exam(s) MAMMO SCREENING EXAM: MAMMO SCREENING CLINICAL HISTORY: screening,z12.39. TECHNIQUE: Bilateral full field digital CC and MLO mammographic images were obtained with 3D tomosyn thesis and utilizing computer aided detection (CAD). COMPARISON: Prior outside mammograms were reviewed. Most recent was October 2020. FINDINGS: There are no new significant right breast findings. In the left breast there is small stable benign-appearing nodules located medial of center. However, there is an asymmetric density-possible new nodule evident on the 3D cc images located 5 cm in from the nipple and measuring 6 x 4 mm. Further imaging required. There are no malignant-appearing micro calcification groups at this location nor elsewhere in either breast. There is no significant architectural distortion nor skin thickening-retraction. IMPRESSION: 1. No radiographic evidence of malignancy in right breast. 2. Asymmetric density-possible 6 x 4 mm nodule in the left breast. Spot compression CC view and maria luz st ultrasound recommended. BI-RADS Category 0 - Incomplete: Need additional imaging evaluation Breast Density - Category B - Scattered areas of fibroglandular density Breast density Category C or D implies that the patient has dense breast tissue. Dense breast tissue can make it harder to find cancer on a mammogram. Dense breast tissue is also associated with an incr eased risk of breast cancer. This information about the result of the mammogram report was provided to the patient to raise their awareness. Use this report when you speak with the patient about their risks for breast cancer, which includes their family history. At that time, you may recommend additional screening tests (Ultrasoun d or MRI) as these tests may add significant information. A negative radiographic report should not delay biopsy if a dominant or clinically suspicious mass is present. Up to ten percent of cancers are not identified on mammography. A negative report may reinforce clinical impression. Adenosis and dense breasts may obscure an underlying neoplasm. False positive reports average 6 to 10%. Patient will receive a letter notifying them of these results.
== END 2024-08-06 02:53 ==
PROVIDERS: PCP Family Medicine; Visit Provider Family Medicine
DX: M25.572 Pain in left ankle and joints of left foot (principal); Z12.31 Encounter for screening mammogram for malignant neoplasm of breast; Z78.0 Asymptomatic menopausal state; Z13.820 Encounter for screening for osteoporosis
CPT/HCPCS: 77063; 77067; 77080; 73610

== ENCOUNTER 2024-08-07 11:36 | Outpatient (CLI) | payer MEDICARE, SELFPAY ==
--- NOTE | 2024-08-07 10:00 | DI.RAD_ITS ---
Exam(s) XR ANKLE LT 2V EXAM: XR ANKLE LT 2V CLINICAL HISTORY: LEFT DISTAL FIB FX. TECHNIQUE: 2D digital imaging was performed. COMPARISON: CR XR ANKLE LT COMPLETE from 08/06/2024 FINDINGS: Two stress views The stress views do not reveal obvious widening the ankle mortise. Distal fibular fractures again noted. IMPRESSION: No mortise widening evident. DATA REPOSITORY: RADIATION DOSE DELIVERED:
== END 2024-08-07 11:37 | disposition home or self-care (01) ==
LOC: DIORS 11:37
PROVIDERS: PCP Family Medicine; Referring Provider Family Medicine; Visit Provider Physician Assistant
DX: S82.402A Unspecified fracture of shaft of left fibula, initial encounter for closed fracture (principal); S82.55XA Nondisplaced fracture of medial malleolus of left tibia, initial encounter for closed fracture; W19.XXXA Unspecified fall, initial encounter
CPT/HCPCS: 99214; 73600

== ENCOUNTER 2024-08-10 03:06 | Outpatient (CLI) | payer MEDICARE, SELFPAY ==
--- NOTE | 2024-08-10 | DI.MAMMO_ITS ---
Exam(s) MG MAMMO SCREEN CALL BACK UNI US BREAST LT LIMITED EXAM: MG MAMMO SCREEN CALL BACK UNI and U/S breast LT limited CLINICAL HISTORY: Asymmetric density-possible 6 x 4 mm nodule, lt breast, 5 cm from nipple. TECHNIQUE: Craniocaudal and mediolateral oblique Full Field Digital Mammography views of the left br east with Computer Aided Diagnosis followed by Tomosynthesis and limited left breast ultrasound. COMPARISON: Comparison is made with prior examinations. FINDINGS: Mammography/Tomosynthesis: Masses/Architectural Distortion: The area of concern in the left breast on the craniocaudad view does not persist on the additional views. No areas of architectural distortion are present. Microcalcifictions: No suspicious pleomorphic-type are seen. Skin Thickening/Nipple Retraction: None. Limited left breast US: Echotexture: Normal appearance of the glandular tissue. Shadowing: No suspicious foci. Cyst: There are 2 small hypoechoic avascular lesions each 1 cm from the nipple. One lies at the 4 o' clock position and 1 lies at the 6 o'clock position. They are less than 4 mm in diameter. These may reflect small cysts or other benign lesion. Solid lesions: None seen. Ductal dilation: None. IMPRESSION: 1. No evidence of malignancy is noted. 2. Unless there is more urgent need, follow-up screening mammography is recommended, as per [place] [employer] guidelines. 3. The findings were discussed with the patient on the date of the examination. BI-RADS Category 2 - Benign Findings Breast Density - Category B - Scattered areas of fibroglandular density Breast density Category C or D implies that the patient has dense breast tissue. Dense breast tissue can make it harder to find cancer on a mammogram. Dense breast tissue is also associated with an incr eased risk of breast cancer. This information about the result of the mammogram report was provided to the patient to raise their awareness. Use this report when you speak with the patient about their risks for breast cancer, which includes their family history. At that time, you may recommend additional screening tests (Ultrasoun d or MRI) as these tests may add significant information. A negative radiographic report should not delay biopsy if a dominant or clinically suspicious mass is present. Up to ten percent of cancers are not identified on mammography. A negative report may reinforce clinical impression. Adenosis and dense breasts may obscure an underlying neoplasm. False positive reports average 6 to 10%. Patient will receive a letter notifying them of these results.
== END 2024-08-10 03:26 ==
PROVIDERS: PCP Family Medicine; Visit Provider Family Medicine
DX: Z12.31 Encounter for screening mammogram for malignant neoplasm of breast (principal); R92.8 Other abnormal and inconclusive findings on diagnostic imaging of breast
CPT/HCPCS: 76642; 77063; 77067

== ENCOUNTER 2024-09-04 10:31 | Outpatient (CLI) | payer MEDICARE, SELFPAY ==
--- NOTE | 2024-09-04 08:00 | DI.RAD_ITS ---
Exam(s) XR ANKLE LT 2V EXAM: XR ANKLE LT 2V CLINICAL HISTORY: evaluation of fx TECHNIQUE: 2D digital imaging was performed of the left ankle. Two images were obtained. AP and la teral views were obtained. COMPARISON: CR XR ANKLE LT COMPLETE from 08/06/2024 CR XR ANKLE LT 2V from 08/07/2024 FINDINGS: BONES: There is stable alignment of the mildly displaced oblique fracture of the distal left fibula. The fracture line is still well visualized. The osseous densities at the tip of the medial malleolu s are stable. No bony destructive lesion is seen. JOINTS:The ankle mortise is normally aligned. SOFT TISSUE: Normal. IMPRESSION: Stable left ankle fracture. DATA REPOSITORY: RADIATION DOSE DELIVERED:
== END 2024-09-04 10:32 | disposition home or self-care (01) ==
PROVIDERS: PCP Family Medicine; Visit Provider Physician Assistant
DX: S82.402D Unspecified fracture of shaft of left fibula, subsequent encounter for closed fracture with routine healing; S82.53XD Displaced fracture of medial malleolus of unspecified tibia, subsequent encounter for closed fracture with routine healing; S82.892K Other fracture of left lower leg, subsequent encounter for closed fracture with nonunion; X58.XXXD Exposure to other specified factors, subsequent encounter
CPT/HCPCS: 99213; 73600

== ENCOUNTER 2024-09-04 11:42 | Outpatient (CLI) | payer MEDICARE, SELFPAY ==
--- NOTE | 2024-09-04 11:00 | DI.CT_ITS ---
Exam(s) CT LOWER EXTREMITY LT WO EXAM: CT LOWER EXTREMITY LT WO CLINICAL HISTORY: PAIN, INJURY, FX MEDIAL MALLEOLUS CLOSED S82.53XA, S82.402A. TECHNIQUE: Imaging Protocol: Axial computed tomography images with coronal and sagittal reformatted images were created and reviewed. COMPARISON: CR XR ANKLE LT 2V from 09/04/2024 FINDINGS: Bones: There is again seen a minimally displaced fracture involving the distal fibula. The fracture s obliquely oriented posterior to anterior. There is some callus formation about the fracture seen l aterally suggesting some interval healing. The fracture is mildly comminuted. The bones are mildly osteopenic suggesting decreased use. There is a well corticated osseous density at the tip of the me dial malleolus which appears old. There is a lucency seen on the lateral view at the tip of the medi al malleolus (series 8, image 26) which may represent a nondisplaced fracture. No lytic or sclerotic lesions are identified. Soft Tissues: Normal. IMPRESSION: 1. Oblique mildly comminuted fracture of the distal fibula. 2. Lucency seen at the very tip of the medial malleolus which may represent a nondisplaced fracture. 3. Well corticated osseous density at the tip of the medial malleolus which appears chronic. RADIATION DOSE DELIVERED: 80.43mGy.cm Total DLP 80.43mGy.cm Total DLP DATA REPOSITORY: All CT scans at this facility are submitted to the National Radiology Data Registry (NRDR) Dose Index Registry (DIR) with the [employer] ([employer]). RADIATION OPTIMIZATION: All CT scans at this facility use at least one of these dose optimization te chniques: automated exposure control; mA and/or kV adjustment per patient size (includes targeted exa ms where dose is matched to clinical indication); or iterative reconstruction.
== END 2024-09-04 12:02 ==
LOC: DI 11:42
PROVIDERS: PCP Family Medicine; Visit Provider Student in an Organized Health Care Education/Training Program
DX: S82.432A Displaced oblique fracture of shaft of left fibula, initial encounter for closed fracture (principal); X58.XXXA Exposure to other specified factors, initial encounter
CPT/HCPCS: 73700

== ENCOUNTER 2024-10-05 15:41 | Outpatient (CLI) | payer MEDICARE, SELFPAY ==
--- NOTE | 2024-10-05 13:36 | DI.RAD_ITS ---
Exam(s) XR ANKLE LT COMPLETE EXAM: XR ANKLE LT COMPLETE CLINICAL HISTORY: left ankle fracture TECHNIQUE: 2D digital imaging was performed. Three views. COMPARISON: CR XR ANKLE LT COMPLETE from 08/06/2024 CR XR ANKLE LT 2V from 09/04/2024 FINDINGS: BONES: Stable alignment of lateral malleolar fracture. Chronic bony density again noted beneath the medial minute malleolus. Spurring anterior tibial plafond. No bony destructive lesion is seen. JOINTS:The ankle mortise is normally aligned. No joint space narrowing. SOFT TISSUE: Normal. IMPRESSION: Continued healing of distal fibular fracture. DATA REPOSITORY: RADIATION DOSE DELIVERED:
== END 2024-10-05 15:42 | disposition home or self-care (01) ==
LOC: DIORS 15:41
PROVIDERS: PCP Family Medicine; Referring Provider Family Medicine; Visit Provider Student in an Organized Health Care Education/Training Program
DX: S82.892K Other fracture of left lower leg, subsequent encounter for closed fracture with nonunion (principal); X58.XXXD Exposure to other specified factors, subsequent encounter
CPT/HCPCS: 99213; 73610

== ENCOUNTER 2024-11-09 15:30 | Outpatient (CLI) | payer MEDICARE, SELFPAY ==
--- NOTE | 2024-11-09 15:00 | DI.RAD_ITS ---
Exam(s) XR ANKLE LT COMPLETE EXAM: XR ANKLE LT COMPLETE CLINICAL HISTORY: F/U L ANKLE FX TECHNIQUE: 2D digital imaging was performed. Three views. COMPARISON: CR XR ANKLE LT COMPLETE from 10/05/2024 FINDINGS: BONES: Continued healing of the distal fibular fracture. Chronic bony density again noted beneath th e medial malleolus. No acute fracture is present. No bony destructive lesion is seen. JOINTS:The ankle mortise is normally aligned. SOFT TISSUE: Normal. IMPRESSION: Continued healing of lateral malleolar fracture. DATA REPOSITORY: RADIATION DOSE DELIVERED:
== END 2024-11-09 15:31 | disposition home or self-care (01) ==
LOC: DIORS 15:31
PROVIDERS: PCP Family Medicine; Referring Provider Family Medicine; Visit Provider Physician Assistant
DX: X58.XXXD Exposure to other specified factors, subsequent encounter (principal); S82.892K Other fracture of left lower leg, subsequent encounter for closed fracture with nonunion
CPT/HCPCS: 99213; 73610

== ENCOUNTER 2024-12-23 02:54 | Outpatient (CLI) | payer MEDICARE, SELFPAY ==
[2024-12-23 10:36] LABS: ALT 22 U/L (14-59); AST 27 U/L (15-37); Albumin 3.9 g/dL (3.4-5.0); Alkaline Phosphatase 78 U/L (46-116); Anion Gap 4.3 mmol/L (3-11); BUN 13 mg/dL (7-18); Bilirubin, Total 1.1 mg/dL (0.2-1.0); CO2 29.7 mmol/L (21.0-32.0); CREATININE 0.8 mg/dL (0.55-1.02); Calcium 9.3 mg/dL (8.5-10.1); Calculated LDL 78 mg/dL (<100); Chloride 104 mmol/L (98-107); Cholesterol 180 mg/dL (<200); Estimated GFR 80.21 (mL/min/1.73m2); Glucose 99 mg/dL (74-106); HDL Cholesterol 92 mg/dL (>or=50); Potassium 4.3 mmol/L (3.5-5.1); Sodium 138 mmol/L (136-145); Triglyceride 52 mg/dL (<150)
[2024-12-29 14:52] LABS: Apolipoprotein B, Serum 73 mg/dL (48-124); Beta VLDL Cholesterol Not Detected mg/dL (<15); Beta VLDL Triglycerides Not Detected mg/dL (<15); Cholesterol, Total, CDC 177 mg/dL; Chylomicron Cholesterol Not Detected; Chylomicron Triglycerides Not Detected; HDL Cholesterol, CDC 76 mg/dL (>=50); LDL Cholesterol 74 mg/dL; LDL Triglycerides 32 mg/dL (<=50); Lp(a) Cholesterol 15 mg/dL (<5); LpX Not detected; Triglycerides, CDC 67 mg/dL; VLDL Cholesterol 12 mg/dL (<30); VLDL Triglycerides 19 mg/dL (<120)
== END 2024-12-23 02:55 | disposition home or self-care (01) ==
PROVIDERS: PCP Family Medicine; Visit Provider Family Medicine
DX: I25.10 Atherosclerotic heart disease of native coronary artery without angina pectoris (principal); I70.0 Atherosclerosis of aorta; I10 Essential (primary) hypertension; E03.9 Hypothyroidism, unspecified
CPT/HCPCS: 36415; 80053; 80061; 82172; 82664; 84443

== ENCOUNTER 2024-12-24 14:17 | Outpatient (REF) | payer MEDICARE, SELFPAY ==
[2024-12-24 20:55] LABS: Abs Immature Grans 0.01 10^3/uL (0.0-0.06); Absolute Basophil Count 0.04 10^3/uL (0.0-0.2); Absolute Eosinophil Count 0.07 10^3/uL (0.0-0.7); Absolute Monocyte Count 0.35 10^3/uL (0.1-0.8); Absolute Neutrophil Count 2.88 10^3/uL (1.2-6.7); Basophils % 0.9 %; Eosinophils % 1.6 %; HCT 45.1 % (36.0-46.0); HGB 14.5 g/dL (11.2-15.7); Immature Grans % 0.2 %; Lymphocytes % 24.7 %; MCH 28.9 pg (27.0-33.0); MCHC 32.2 % (32.0-36.0); MCV 90 fL (80-95); Monocytes % 7.9 %; Neutrophils % 64.7 %; Platelet Count 321 10^3/uL (130-400); RBC 5.02 10^6/uL (3.93-5.22); RDW 13.1 % (11.7-14.6); RDW-SD 42.9 fL; WBC 4.45 10^3/uL (4.4-10.8)
[2024-12-24 21:02] LABS: ESR 4 mm/hr (0-30)
[2024-12-24 21:36] LABS: Vitamin B12 722 pg/mL (193-986)
[2024-12-24 21:49] LABS: C-Reactive Protein < 0.50 mg/dL (<or=0.5)
[2024-12-28 09:17] LABS: Lyme Ab w Rflx to Lyme Confirm Negative (Negative)
[2024-12-28 10:18] LABS: Cyclic Citrullinated Peptide <2.5 U/mL (<5.0)
[2024-12-29 12:33] LABS: Anaplasma phagocytophilum Negative (Negative); B. miyamotoi PCR Negative (Negative); Babesia divergens/MO-1 Negative (Negative); Babesia duncani Negative (Negative); Babesia microti Negative (Negative); Ehrlichia chaffeensis Negative (Negative); Ehrlichia ewingii/canis Negative (Negative); Ehrlichia muris eauclairensis Negative (Negative)
== END 2024-12-24 14:18 | disposition home or self-care (01) ==
LOC: LBN 14:17
PROVIDERS: PCP Family Medicine; Visit Provider Nurse Practitioner Family
DX: M25.59 Pain in other specified joint (principal); E53.8 Deficiency of other specified B group vitamins
CPT/HCPCS: 85652; 86200; 87798; 82607; 85025; 86140; 86618

== ENCOUNTER 2025-01-11 15:45 | Outpatient (CLI) | payer MEDICARE, SELFPAY ==
--- NOTE | 2025-01-11 14:30 | DI.RAD_ITS ---
Exam(s) XR ANKLE LT COMPLETE EXAM: XR ANKLE LT COMPLETE CLINICAL HISTORY: L ankle fx TECHNIQUE: 2D digital imaging was performed of the left ankle. Three images were obtained. AP, lat eral and oblique views were obtained. COMPARISON: CT CT LOWER EXTREMITY LT WO from 09/04/2024 CR XR ANKLE LT COMPLETE from 11/09/2024 FINDINGS: BONES: There has been continued healing of the left fibular fracture. The fracture appears to be wel l healed. A CT scan may be obtained for further characterization. No new fractures identified. The well corticated osseous density at the tip of the medial malleolus is again seen and appears old. N o bony destructive lesion is seen. JOINTS:The ankle mortise is normally aligned. SOFT TISSUE: Normal. IMPRESSION: Significant, if not complete healing, of the left distal fibular fracture. DATA REPOSITORY: RADIATION DOSE DELIVERED:
== END 2025-01-11 15:46 | disposition home or self-care (01) ==
LOC: DIORS 15:45
PROVIDERS: PCP Family Medicine; Referring Provider Family Medicine; Visit Provider Physician Assistant
DX: S82.892K Other fracture of left lower leg, subsequent encounter for closed fracture with nonunion (principal); X58.XXXD Exposure to other specified factors, subsequent encounter
CPT/HCPCS: 99213; 73610

== ENCOUNTER 2025-04-21 19:42 | Outpatient (REF) | payer MEDICARE, SELFPAY ==
[2025-04-21 21:32] LABS: Glucose Negative (Negative)
[2025-04-21 22:03] LABS: RBC Negative HPF (0-2)
== END 2025-04-21 19:43 | disposition home or self-care (01) ==
LOC: NCHCN 19:42
PROVIDERS: PCP Family Medicine; Visit Provider Family Medicine
DX: R35.0 Frequency of micturition (principal)
CPT/HCPCS: 81003; 81015